=== PATIENT | female | born 1950 | race Caucasian/White ===

== ENCOUNTER 2019-02-28 02:27 | Emergency (ER) | payer BC ==
--- NOTE | 2019-02-28 04:01 | ED ---
Adult Trauma - HPI Summary HPI Summary: Pt is a 68 y/o female who presents to the ED s/p head injury. At 22:00 last night she tripped over her dog and fell on her right side. Pt hit her head on a door frame, but denies any LOC. She now c/o headache, right rib pain, mid-back pain, right shoulder bruise, and a bump to her head. Pt denies any neck pain. Pain is rated a 10/10 in severity and is made worse with movement. She is accompanied by her . 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 Mechanism of Injury: Fall Loss of Consciousness: no loss of consciousness Onset/Duration: Started Hours Ago - 22:00 last night, Still Present Onset of Pain: Immediate Current Severity: Severe Pain Intensity: 10 Pain Scale Used: 0-10 Numeric Location: Head, Chest, Back Aggravating Factor(s): Movement - Additional Pertinent History Primary Care Physician: [id number] - Allergy/Home Medications Allergies/Adverse Reactions: Allergies Allergy/AdvReac Type Severity Reaction Status Date / Time No Known Allergies Allergy Verified 02/28/19 02:38 PMH/Surg Hx/FS Hx/Imm Hx Endocrine/Hematology History: Reports: Hx Diabetes Cardiovascular History: Denies: Hx Hypertension, Hx Myocardial Infarction, Hx Pacemaker/ICD Respiratory History: Reports: Hx Asthma, Other Respiratory Problems/Disorders - Asthma GI History: Reports: Other GI Disorders - stomach issues since gastric bypass History: Denies: Hx Renal Disease Sensory History: Denies: Hx Hearing Aid Neurological History: Reports: Other Neuro Impairments/Disorders - 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 Hysterectomy. Gastric Bypass. abdominoplasty. Hand surgery. MALDONADO AND SCAR TISSUE REMOVAL THOUGHOUT UPPER ABD 05/04 - Immunization History Date of Tetanus Vaccine: unk Date of Influenza Vaccine: unk Infectious Disease History: No Infectious Disease History: Denies: Traveled Outside the [place] in Last 30 Days - Family History Known Family History: Negative: Cardiac Disease - Social History Alcohol Use: Rare Hx Substance Use: No Substance Use Type: Reports: None Hx Tobacco Use: No Smoking Status (MU): Never Smoked Tobacco Review of Systems Positive: Myalgia - right rib, mid-back, NEGATIVE: neck, Other - bump on head Positive: Bruising - R shoulder Neurological: Other - NEGATIVE: LOC Positive: Headache All Other Systems Reviewed And Are Negative: Yes Physical Exam - Summary Physical Exam Summary: VITAL SIGNS: Reviewed. GENERAL: Patient is a well-developed and nourished FEMALE who is lying uncomfortable in the stretcher. Patient is not in any acute respiratory distress. HEAD AND FACE: No ecchymosis, hematomas or skull depressions. No sinus tenderness. Local swelling over right parietal-occipital area. EYES: PERRLA, EOMI x 2, No injected conjunctiva, no nystagmus. EARS: Hearing grossly intact. Ear canals and tympanic membranes are within normal limits. MOUTH: Oropharynx within normal limits. NECK: Supple, trachea is midline, no adenopathy, no JVD, no carotid bruit, no c- spine tenderness, neck with full ROM. CHEST: Symmetric, diffuse tenderness of anterior chest wall. LUNGS: Clear to auscultation bilaterally. No wheezing or crackles. CVS: Regular rate and rhythm, S1 and S2 present, no murmurs or gallops appreciated. ABDOMEN: Soft, non-tender. No signs of distention. No rebound no guarding, and no masses palpated. Bowel sounds are normal. EXTREMITIES: FROM in all major joints, no edema, no cyanosis or clubbing. NEURO: Alert and oriented x 3. No acute neurological deficits. Speech is normal and follows commands. SKIN: Dry and warm Triage Information Reviewed: Yes Vital Signs On Initial Exam: Initial Vitals Temp Pulse Resp BP Pulse Ox 97.1 F 72 16 195/95 98 02/28/19 02:30 02/28/19 02:30 02/28/19 02:30 02/28/19 02:30 02/28/19 02:30 Vital Signs Reviewed: Yes - [place]ord Coma Scale Best Eye Response: 4 - Spontaneous Best Motor Response: 6 - Obeys Commands Best Verbal Response: 5 - Oriented Coma Scale Total: 15 Diagnostics - Vital Signs Vital Signs Temp Pulse Resp BP Pulse Ox 02/28/19 02:30 97.1 F 72 16 195/95 98 - Laboratory Result Diagrams: 02/28/19 04:35 04/12/19 04:35 Lab Statement: Any lab studies that have been ordered have been reviewed, and results considered in the medical decision making process. - CT Brain CT CT Interpretation Completed By: Radiologist Summary of CT Findings: 1. No acute intracranial abnormality. 2. Left frontal, ethmoid and maxillary sinusitis. ED physician reviewed radiology report. Cervical Spine CT CT Interpretation Completed By: Radiologist Summary of CT Findings: 1. No acute fracture or spondylolisthesis. 2. Mild asymmetry in lateral mass of C1 to dens interval with the left being slightly wider which may be due to the patient's position vs ligamentous laxity. 3. Mild multilevel degenerative spondylosis, greatest at C6-7 with mild spinal stenosis and mild left neural foraminal narrowing. ED physician reviewed radiology report. Chest/Abdomen/Pelvis CT CT Interpretation Completed By: Radiologist Summary of CT Findings: 1. No evidence of acute intra-abdominal injury. 2. Hepatosplenomegaly. 3. A small hiatal hernia. 4. Colonic diverticulosis with no evidence of acute diverticulitis. ED physician reviewed radiology report. Re-Evaluation - Re-Evaluation First Eval Re-Evaluation Time: 06:37 Change: Unchanged Comment: Discussed CT results with patient. Adult Trauma Course/Dx - Course Course Of Treatment: Pt is a 68 y/o female who presents to the ED c/o headache, right rib pain, mid-back pain, right shoulder bruise, and a bump to her head s/ p head injury. She denies any neck pain. A physical exam revealed the pt uncomfortable, diffuse tenderness of anterior chest wall, and local swelling over right parietal-occipital area. Neck and neurological exams were normal. GCS of 15. A brain CT revealed No acute intracranial abnormality. Left frontal, ethmoid and maxillary sinusitis. A chest/abdomen/pelvis CT revealed No evidence of acute intra-abdominal injury. Hepatosplenomegaly. A small hiatal hernia. Colonic diverticulosis with no evidence of acute diverticulitis. A cervical spine CT revealed No acute fracture or spondylolisthesis. Mild asymmetry in lateral mass of C1 to dens interval with the left being slightly wider which may be due to the patient's position vs ligamentous laxity. Mild multilevel degenerative spondylosis, greatest at C6-7 with mild spinal stenosis and mild left neural foraminal narrowing. Bloodwork without any abnormalities. In the course she was given Fentanyl, Zofran, and fluids. Pt will be discharged with a final dx of chest wall contusion. She is agreeable with this plan. - Diagnoses Provider Diagnoses: Chest wall contusion Discharge - Sign-Out/Discharge Documenting (check all that apply): Patient Departure - Discharge Patient Received Moderate/Deep Sedation with Procedure: No - Discharge Plan Condition: Stable Disposition: HOME Patient Education Materials: Chest Wall Pain (ED) Referrals: Smooth Araujo, [employer] [Primary Care Provider] - (1-2 days) Additional Instructions: PLEASE RETURN TO THE ED IMMEDIATELY FOR WORSENING OR CONCERNING SYMPTOMS. - Attestation Statements Document Initiated by Scribe: Yes Documenting Scribe: Janie Nunez Provider For Whom Scribe is Documenting (Include Credential): Bisi George MD Scribe Attestation: Janie Chávez, scribed for Bisi George MD on 02/28/19 at 0640. Status of Scribe Document: Ready
[2019-02-28] MEDS ORDERED: NS 0.9% 1000 ML** 1,000 ML IV ONE (04:06)
[2019-02-28] MEDS ORDERED: Ondansetron INJ* 2 MG/ML VIAL IV ONE (04:06)
[2019-02-28] MEDS ORDERED: fentaNYL* 50 MCG/ML 2 ML VIAL (100 MCG VIAL) IV ONE (04:06)
[2019-02-28 04:48] LABS: ABS Basophils 0.1 10^3/ul (0-0.2); ABS Eosinophils 0.1 10^3/ul (0-0.6); ABS Lymphocytes 1.6 10^3/ul (1.0-4.8); ABS Monocytes 0.5 10^3/ul (0-0.8); ABS Neutrophils 4.6 10^3/ul (1.5-7.7); ABS Nucleated RBC 0 10^3/ul; Eosinophil % 1.6 %; Hematocrit 35 % (33-41); Hemoglobin 11.7 g/dL (12.0-16.0); Lymphocyte % 23.2 %; Mean Corpuscular HGB Conc 33 g/dL (31-36); Mean Corpuscular Hemoglobin 28 pg (27-31); Mean Corpuscular Volume 85 fL (80-97); Nucleated Red Blood Cells % 0; Platelet Count 161 10^3/uL (150-450); Red Blood Count 4.11 10^6 /uL (3.70-4.87); Red Cell Distribution Width 15 % (10.5-15); White Blood Count 6.9 10^3/uL (3.5-10.8)
[2019-02-28 05:00] LABS: Activated Partial Thrombo Time 30.5 seconds (26.0-36.3); INR 0.97 (0.77-1.02)
[2019-02-28 05:07] LABS: Albumin 3.5 g/dL (3.2-5.2); Albumin/Globulin Ratio 1.1 (1-3); BUN/Creatinine Ratio 23.3 (8-20); Calcium 8.6 mg/dL (8.6-10.3); Globulin 3.1 g/dL (2-4); Potassium 4.2 mmol/L (3.5-5.0); Total Bilirubin 0.4 mg/dL (0.2-1.0); Total Protein 6.6 g/dL (6.4-8.9)
[2019-02-28] MEDS ORDERED: Iodixanol* (CONTRAST) 320 MG/ML 100 ML SDV IV ONE (05:10)
[2019-02-28 06:57] VITALS: BP 148/76
== END 2019-02-28 06:57 | disposition home or self-care (01) ==
LOC: ED 02:27
DX: R51 Headache (principal); S20.219A Contusion of unspecified front wall of thorax, initial encounter; X58.XXXA Exposure to other specified factors, initial encounter; Y92.9 Unspecified place or not applicable; E11.9 Type 2 diabetes mellitus without complications
CPT/HCPCS: 36415; 70450; 71260; 72125; 74177; 80053; 85025; 85610; 85730; 96361; 96374; 96375; 96376; 99283; J2405; J3010

== ENCOUNTER 2021-05-02 19:34 | Inpatient (IN) ==
[2021-05-02] MEDS ORDERED: Furosemide 20 mg/2 ml IV VIAL IV ONE (23:16)
[2021-05-02] MEDS ORDERED: Nitro 2% OINT (Nitroglycerin) 1 INCH/PAK TOPICAL ONE (23:17)
[2021-05-02 23:49] LABS: ABS Basophils 0.1 10^3/ul (0-0.2); ABS Eosinophils 0.2 10^3/ul (0-0.6); ABS Lymphocytes 2.2 10^3/ul (1.0-4.8); ABS Monocytes 0.8 10^3/ul (0-0.8); ABS Neutrophils 4.5 10^3/ul (1.5-7.7); Hematocrit 35 % (35-47); Hemoglobin 11.7 g/dL (12.0-16.0); Lymphocyte % 28.6 %; Mean Corpuscular HGB Conc 33 g/dL (31-36); Mean Corpuscular Hemoglobin 29 pg (27-31); Mean Corpuscular Volume 88 fL (80-97); Mean Platelet Volume 8.8 fL (7.4-10.4); Platelet Count 167 10^3/uL (150-450); Red Blood Count 4.02 10^6 /uL (3.70-4.87); Red Cell Distribution Width 15 % (10-15); White Blood Count 7.7 10^3/uL (3.5-10.8)
[2021-05-02 23:58] LABS: Albumin 3.5 g/dL (3.2-5.2); Calcium 8.7 mg/dL (8.6-10.3); Potassium 4.3 mmol/L (3.5-5.0); Total Bilirubin 0.4 mg/dL (0.2-1.0)
[2021-05-03 00:04] LABS: EGFR African American 86.3 (>60); EGFR Non-African American 71.3 (>60); Globulin 3.4 g/dL (2-4); Total Protein 6.9 g/dL (6.4-8.9)
[2021-05-03 00:52] LABS: Troponin I 0.01 ng/mL (<0.03)
[2021-05-03] MEDS ORDERED: Dextrose 50% Syringe 50 ml 25 GM/50 ML SYRINGE IV PUSH PRN (04:40)
[2021-05-03 06:01] LABS: HDL Cholesterol 20.9 mg/dL
[2021-05-03 07:38] LABS: Troponin I 0.01 ng/mL (<0.03)
[2021-05-03] MEDS ORDERED: Furosemide 20 mg/2 ml IV VIAL IV ONE (10:08)
[2021-05-03] MEDS: Enoxaparin 40 MG/0.4 ML SYR SUBCUT SCH (10:33)
[2021-05-03] MEDS ORDERED: Nitroglycerin 0.1 mg/hr PATCH (2.5 mg) TRANSDERM SCH (12:00)
[2021-05-03] MEDS ORDERED: Perflutren Lipid Microsphere 3 ML VIAL ONE (12:23)
[2021-05-03] MEDS: Nitro 2% OINT (Nitroglycerin) 1 INCH/PAK TOPICAL SCH (14:48)
[2021-05-03] MEDS: Insulin GLARGINE 100 un/ml 10 ml VIAL SUBCUT SCH (18:28)
[2021-05-03] MEDS: Nitro Patch/OINT Remove PATCH PATCH OFF SCH (18:30)
[2021-05-03] MEDS ORDERED: Nitro Patch/OINT Remove PATCH TOPICAL SCH (21:30)
[2021-05-04] MEDS: Nitro 2% OINT (Nitroglycerin) 1 INCH/PAK TOPICAL SCH ×2 (06:35→13:51)
[2021-05-04 08:20] LABS: ABS Eosinophils 0.1 10^3/ul (0-0.6); ABS Lymphocytes 1.8 10^3/ul (1.0-4.8); ABS Monocytes 0.5 10^3/ul (0-0.8); ABS Neutrophils 3.1 10^3/ul (1.5-7.7); Eosinophil % 2.6 %; Hematocrit 35 % (35-47); Hemoglobin 11.6 g/dL (12.0-16.0); Mean Corpuscular HGB Conc 33 g/dL (31-36); Mean Corpuscular Hemoglobin 29 pg (27-31); Mean Corpuscular Volume 87 fL (80-97); Mean Platelet Volume 8.8 fL (7.4-10.4); Platelet Count 161 10^3/uL (150-450); Red Blood Count 3.99 10^6 /uL (3.70-4.87); Red Cell Distribution Width 15 % (10-15); White Blood Count 5.6 10^3/uL (3.5-10.8)
[2021-05-04 08:30] LABS: Calcium 9.1 mg/dL (8.6-10.3); EGFR African American 99.1 (>60); EGFR Non-African American 81.9 (>60)
[2021-05-04 08:38] LABS: C Reactive Protein 26.39 mg/L (<8.01)
[2021-05-04] MEDS ORDERED: Regadenoson 0.4 MG/5 ML SYRINGE ONE (08:40)
[2021-05-04] MEDS ORDERED: Aminophylline 25 MG/ML VIAL ONE (08:40)
[2021-05-04] MEDS: Enoxaparin 40 MG/0.4 ML SYR SUBCUT SCH (09:58)
[2021-05-04] MEDS: Nitro Patch/OINT Remove PATCH PATCH OFF SCH (11:34)
[2021-05-04 15:35] VITALS: BP 107/68
[2021-05-04] MEDS: Insulin GLARGINE 100 un/ml 10 ml VIAL SUBCUT SCH (17:13)
[2021-05-06 16:14] LABS: Anaplasma phagocytophilium <1:64 titer (<1:64); Ehrlichia chaffeensis IgG AB <1:64 titer (<1:64); Lyme Disease Serology Negative (Negative)
== END 2021-05-04 19:10 | disposition home or self-care (01) ==
LOC: ED 19:34 → MEDTELE 05-03 03:36
PROVIDERS: ADMIT Hospitalist; ATTEND Pediatrics

== ENCOUNTER 2021-08-10 07:13 | Observation (INO) ==
[2021-08-10] MEDS ORDERED: Albuterol HFA INHALER 8 gm MDI INH ONE (07:46)
[2021-08-10 08:06] LABS: ABS Basophils 0.1 10^3/ul (0-0.2); ABS Eosinophils 0.2 10^3/ul (0-0.6); ABS Lymphocytes 1.7 10^3/ul (1.0-4.8); ABS Monocytes 0.5 10^3/ul (0-0.8); ABS Neutrophils 4.8 10^3/ul (1.5-7.7); Eosinophil % 2.1 %; Hematocrit 35 % (35-47); Hemoglobin 11.7 g/dL (12.0-16.0); Mean Corpuscular HGB Conc 34 g/dL (31-36); Mean Corpuscular Hemoglobin 29 pg (27-31); Mean Corpuscular Volume 87 fL (80-97); Mean Platelet Volume 8.4 fL (7.4-10.4); Platelet Count 154 10^3/uL (150-450); Red Cell Distribution Width 15 % (10-15); White Blood Count 7.2 10^3/uL (3.5-10.8)
[2021-08-10 08:23] LABS: Albumin 3.4 g/dL (3.2-5.2); Calcium 8.8 mg/dL (8.6-10.3); EGFR African American 97.2 (>60); EGFR Non-African American 80.3 (>60); Globulin 3.5 g/dL (2-4); Magnesium 1.6 mg/dL (1.9-2.7); Potassium 4.2 mmol/L (3.5-5.0); Total Bilirubin 0.7 mg/dL (0.2-1.0); Total Protein 6.9 g/dL (6.4-8.9)
[2021-08-10 08:25] LABS: Troponin I 0.01 ng/mL (<0.03)
[2021-08-10] MEDS ORDERED: Furosemide 40 mg/4 ml IV VIAL IV SLOW PU ONE (08:27)
[2021-08-10 08:36] LABS: Influenza A Molecular Negative (Negative); Influenza B Molecular Negative (Negative)
[2021-08-10] MEDS ORDERED: Magnesium Sulfate 2 gm BAG 2 GM/50 ML BAG IVPB ONE (09:39)
[2021-08-10] MEDS ORDERED: Albuterol HFA INHALER 8 gm MDI INH PRN (10:23)
[2021-08-10] MEDS ORDERED: HYDROcodone/ACETAMIN 5/325 mg TAB PO PRN (10:23)
[2021-08-10 10:24] LABS: Urine Appearance Cloudy; Urine Bilirubin Negative (Negative); Urine Blood Negative (Negative); Urine Color Yellow; Urine Glucose 3+(>=500 mg/dL) (Negative); Urine Ketones Negative (Negative); Urine Nitrite Positive (Negative); Urine Protein Negative (Negative); Urine Specific Gravity 1.006 (1.002-1.030); Urine Urobilinogen Negative (Negative)
[2021-08-10] MEDS ORDERED: Dextrose 50% Syringe 50 ml 25 GM/50 ML SYRINGE IV PUSH PRN (10:29)
[2021-08-10 10:35] LABS: Urine Bacteria 1+ (Absent); Urine Red Blood Cell Absent (Absent); Urine White Blood Cell Absent (Absent)
[2021-08-10] MEDS: Enoxaparin 40 MG/0.4 ML SYR SUBCUT SCH (13:28)
[2021-08-11] MEDS ORDERED: Furosemide 40 mg/4 ml IV VIAL IV SLOW PU ONE (08:13)
[2021-08-11] MEDS: Enoxaparin 40 MG/0.4 ML SYR SUBCUT SCH (10:17)
[2021-08-11] MEDS: Insulin GLARGINE 100 un/ml 10 ml VIAL SUBCUT SCH (10:18)
[2021-08-12 06:38] LABS: Calcium 8.9 mg/dL (8.6-10.3); EGFR African American 100.4 (>60); Magnesium 1.8 mg/dL (1.9-2.7); Potassium 3.8 mmol/L (3.5-5.0)
[2021-08-12] MEDS ORDERED: Magnesium Sulfate 2 gm BAG 2 GM/50 ML BAG IVPB ONE (08:11)
[2021-08-12 08:16] VITALS: BP 140/58
[2021-08-12] MEDS: Enoxaparin 40 MG/0.4 ML SYR SUBCUT SCH (08:59)
[2021-08-12] MEDS: Insulin GLARGINE 100 un/ml 10 ml VIAL SUBCUT SCH (08:59)
[2021-08-12] MEDS ORDERED: Flu vaccine *QUAD* 2021-22* 0.5 ML SYRINGE IM ONE (09:00)
== END 2021-08-12 11:45 | disposition home or self-care (01) ==
LOC: ED 07:13 → MED 07:13 → SUATTDRO 10:27 → MED 11:46
PROVIDERS: ADMIT Student in an Organized Health Care Education/Training Program; ATTEND Internal Medicine